=== PATIENT | female | born 1980 | race Hispanic/Latino ===

== ENCOUNTER 2024-02-16 00:17 | Emergency (ER) | payer MEDICAID ==
[2024-02-16] MEDS: GABAPENTIN 300 MG CAPSULE PO STA (01:07)
[2024-02-16] MEDS: OXYCODONE/ACETAMIN 5/325MG TAB PO STA (01:07)
[2024-02-16 08:04] VITALS: BP 106/61; PULSE 97; RESP 18; O2SAT 100
== END 2024-02-16 08:14 | disposition home or self-care (01) ==
LOC: EDH 00:17
DX: M79.604 Pain in right leg (principal); M79.605 Pain in left leg; F11.20 Opioid dependence, uncomplicated; G89.4 Chronic pain syndrome; Z86.2 Personal history of diseases of the blood and blood-forming organs and certain disorders involving the immune mechanism; Z76.5 Malingerer [conscious simulation]; Z88.1 Allergy status to other antibiotic agents

== ENCOUNTER 2024-03-07 23:25 | Emergency (ER) | payer MEDICARE ==
[~2024-03-07] VITALS: Ht 162.6 cm; Wt 85.3 kg
[2024-03-08 00:03] LABS: HCG,QUALITATIVE URINE NEGATIVE (NEGATIVE)
[2024-03-08 00:13] LABS: AMPHET/METH SCREEN,URINE NEGATIVE (NEGATIVE); BARBITURATE SCREEN, URINE NEGATIVE (NEGATIVE); BENZODIAZEPINES SCREEN,URINE POSITIVE (NEGATIVE); CANNABINOID SCREEN,URINE POSITIVE (NEGATIVE); COCAINE SCREEN,URINE NEGATIVE (NEGATIVE); OPIATE SCREEN,URINE NEGATIVE (NEGATIVE); PHENCYCLIDINE SCREEN,URINE NEGATIVE (NEGATIVE)
[2024-03-08 00:17] LABS: CARBON DIOXIDE 28 mmol/L (21-32); CHLORIDE 107 mmol/L (101-111); CREATININE 0.8 mg/dL (0.5-1.0); GLOMERULAR FILTR. RATE CALC 94 mL/min (>90); GLUCOSE,RANDOM 113 mg/dL (70-105); SODIUM SERUM 144 mmol/L (136-145); UREA NITROGEN, BLOOD 16 mg/dL (7-18)
[2024-03-08 00:26] LABS: ALCOHOL, BLOOD < 3 mg/dL (0-10)
[2024-03-08 00:34] LABS: BASOPHILS % (AUTO) 0.9 % (0.0-5.0); EOSINOPHILS # (AUTO) 0.04 K/uL (0.00-0.70); EOSINOPHILS % (AUTO) 0.4 % (0.0-8.0); HEMATOCRIT 31.4 % (36-48); IMMATURE GRANULOCYTE ABSOLUTE 1.23 K/uL (0-1); LYMPHOCYTES # (AUTO) 2.2 K/uL (1.0-4.8); LYMPHOCYTES % (AUTO) 20.4 % (21.0-51.0); MEAN CORPUSCULAR HEMOGLOBIN 27.2 pg (27.0-33.0); MEAN CORPUSCULAR HGB CONC 31.2 g/dL (32.0-36.0); MEAN CORPUSCULAR VOLUME 87.2 fL (79-99); MONOCYTES % (AUTO) 9.1 % (3.0-13.0); NEUTROPHILS # (AUTO) 6.2 K/uL (1.8-7.7); NEUTROPHILS % (AUTO) 57.8 % (40.0-77.0); PLATELET COUNT (AUTO) 329 K/uL (130-400); RED CELL DISTRIBUTION WIDTH 15.7 % (11.0-15.5); WHITE BLOOD COUNT (AUTO) 10.8 K/uL (4.8-10.8)
[2024-03-08] MEDS: HYDROXYZINE 50MG VIAL 50 MG/ML VIAL IM STA (01:03)
[2024-03-08 01:23] VITALS: BP 132/60; PULSE 80; RESP 16; O2SAT 99
== END 2024-03-08 01:24 | disposition home or self-care (01) ==
LOC: EDH 23:25
DX: F41.1 Generalized anxiety disorder (principal); F19.10 Other psychoactive substance abuse, uncomplicated; Z98.890 Other specified postprocedural states; Z88.8 Allergy status to other drugs, medicaments and biological substances; Z79.899 Other long term (current) drug therapy
CPT/HCPCS: 99285; 71045; 80048; 80305; 85025; 81025; 36415; 93005; 96372; J3410